=== PATIENT | female | born 1985 | race African-American/Black ===

== ENCOUNTER 2022-02-20 15:00 | Outpatient (CLI) | payer OTHER | END 2022-02-20 16:07 | disposition home or self-care (01) | LOC: PRENATAL 15:00 | PROVIDERS: ATTEND Obstetrics & Gynecology Maternal & Fetal Medicine | DX: O35.0XX0 Maternal care for (suspected) central nervous system malformation in fetus, not applicable or unspecified (principal); O35.3XX0 Maternal care for (suspected) damage to fetus from viral disease in mother, not applicable or unspecified; O09.219 Supervision of pregnancy with history of pre-term labor, unspecified trimester ==

== ENCOUNTER 2022-06-04 19:58 | Inpatient (IN) | payer OTHER ==
[~2022-06-04] VITALS: Ht 160 cm; Wt 79.4 kg
[2022-06-07] MEDS ORDERED: IBUPROFEN800 MG PO (09:23)
== END 2022-06-07 13:24 | disposition home or self-care (01) | DRG 786 ==
LOC: LDR 19:58 → OB/GYN 19:58
PROVIDERS: ADMIT Obstetrics & Gynecology; ATTEND Obstetrics & Gynecology
PROC: 4A1HXCZ Monitoring of Products of Conception, Cardiac Rate, External Approach (ICD-10-PCS; 2022-06-04)
PROC: 10D00Z1 Extraction of Products of Conception, Low, Open Approach (ICD-10-PCS; principal; 2022-06-04 20:00)
DX: O36.8330 Maternal care for abnormalities of the fetal heart rate or rhythm, third trimester, not applicable or unspecified (principal); O60.14X0 Preterm labor third trimester with preterm delivery third trimester, not applicable or unspecified; O34.211 Maternal care for low transverse scar from previous cesarean delivery; Z3A.36 36 weeks gestation of pregnancy; Z37.0 Single live birth; Z20.822 Contact with and (suspected) exposure to COVID-19